=== PATIENT | male | born 1975 | race Caucasian/White ===

== ENCOUNTER → 2021-03-23 09:13 | Outpatient (CLI) | payer OTHER | END | disposition home or self-care (01) | LOC: D.US 09:13 | PROVIDERS: ATTEND Family Medicine | DX: R10.9 Unspecified abdominal pain (principal) ==

== ENCOUNTER → 2021-03-28 08:10 | Outpatient (CLI) | payer OTHER | END | disposition home or self-care (01) | LOC: D.US 08:10 | PROVIDERS: ATTEND Family Medicine | DX: R10.9 Unspecified abdominal pain (principal) ==